=== PATIENT | male | born 1995 | race Caucasian/White ===

== ENCOUNTER 2019-03-04 14:04 | Emergency (ER) | payer OTHER ==
[~2019-03-04] VITALS: Ht 149.9 cm; Wt 65.0 kg
[2019-03-04] MEDS ORDERED: METF-960 PO (14:27)
[2019-03-04 14:30] LABS: GLUCOSE,POINT OF CARE 91 MG/DL (70-110)
[2019-03-04 15:11] VITALS: BP 132/77
== END 2019-03-04 15:13 | disposition home or self-care (01) ==
LOC: EDSEX 14:07 → EMS 14:07
DX: L60.0 Ingrowing nail (principal); E11.9 Type 2 diabetes mellitus without complications; Z79.84 Long term (current) use of oral hypoglycemic drugs

== ENCOUNTER 2023-01-26 12:15 | Emergency (ER) | payer OTHER ==
[~2023-01-26] VITALS: Ht 154.9 cm; Wt 68.2 kg
[~2023-01-26 12:15] MED LIST: METF-1211 PO
[2023-01-26 12:28] VITALS: TEMP 97.7
[2023-01-26] MEDS ORDERED: GLIP-102 PO (12:29)
[2023-01-26] MEDS ORDERED: METF-81 PO (12:29)
[2023-01-26 14:52] VITALS: BP 91/58; PULSE 75; RESP 16
== END 2023-01-26 15:05 | disposition home or self-care (01) ==
LOC: EMS 12:25
DX: S93.401A Sprain of unspecified ligament of right ankle, initial encounter (principal); E11.9 Type 2 diabetes mellitus without complications; X58.XXXA Exposure to other specified factors, initial encounter; Y93.89 Activity, other specified; Y92.89 Other specified places as the place of occurrence of the external cause; Y99.8 Other external cause status
CPT/HCPCS: 82962; 99284

== ENCOUNTER 2024-01-12 20:24 | Emergency (ER) | payer OTHER ==
[~2024-01-12] VITALS: Ht 142.2 cm; Wt 54.1 kg
[~2024-01-12 20:24] MED LIST changes: +GLIP-102 PO; -METF-1211 PO; +METF-81 PO
[2024-01-12 20:31] VITALS: BP 111/59; PULSE 83; RESP 16; TEMP 97.3
[2024-01-12] MEDS ORDERED: IBUP-1492 PO (23:24)
[2024-01-12] MEDS: IBUPROFEN 400 MG TABLET PO ONE (23:31)
== END 2024-01-13 | disposition home or self-care (01) ==
LOC: EMS 20:24
DX: S90.31XA Contusion of right foot, initial encounter (principal); W22.01XA Walked into wall, initial encounter; Y93.89 Activity, other specified; Y92.89 Other specified places as the place of occurrence of the external cause; Y99.8 Other external cause status; E11.9 Type 2 diabetes mellitus without complications
CPT/HCPCS: 82962; 99283